=== PATIENT | female | born 1955 | race Caucasian/White ===

== ENCOUNTER 2018-01-23 22:16 | Emergency (ER) | payer SELFPAY ==
[~2018-01-23] VITALS: Ht 144.8 cm; Wt 43.3 kg
[2018-01-23 22:26] VITALS: BP 134/74
[2018-01-23] MEDS ORDERED: HYDROcodone/acetaminophen 10/325mg tab PO ONE (23:20)
[2018-01-23] MEDS ORDERED: diazepam 5mg tablet PO ONE (23:20)
== END 2018-01-24 00:33 | disposition home or self-care (01) ==
LOC: ER 22:18
DX: S22.068A Other fracture of T7-T8 thoracic vertebra, initial encounter for closed fracture (principal); S22.078A Other fracture of T9-T10 vertebra, initial encounter for closed fracture; S00.03XA Contusion of scalp, initial encounter; M40.204 Unspecified kyphosis, thoracic region; E78.00 Pure hypercholesterolemia, unspecified; I10 Essential (primary) hypertension; Z98.890 Other specified postprocedural states; Z88.0 Allergy status to penicillin; V89.2XXA Person injured in unspecified motor-vehicle accident, traffic, initial encounter; Y93.89 Activity, other specified; Y92.89 Other specified places as the place of occurrence of the external cause; Y99.8 Other external cause status
CPT/HCPCS: 70450; 72125; 72128; 99284